=== PATIENT | male | born 1975 | race African-American/Black ===

== ENCOUNTER 2017-06-14 16:14 | Observation (INO) | payer SELFPAY ==
--- NOTE | 2017-06-14 17:01 | DR.GENAD ---
HPI - PCP Primary Care Physician: NFD - Complaint/Symptoms Chief Complaint Doctors Comments: History as stated, admits to alcohol comsumption Chief Complaint:: "For about 3 days now I have been having stomach pain in the lower part of it. It has gotten so bad I can barely touch it without it hurting. I threw up 1 time the other day, but not after. I took a Zantac but that didn't do anything. I also took a laxative yesterday but it didn't stop the pain." Self Treatment fo Chief Complaint: Zantac x 1. Laxative - Source History Provided: Patient - Mode of Arrival Mode of Arrival: Ambulatory - Timing Onset of Chief Complaint: 06/11/17 PMH - PMH Past Medical History: No Past Surgical History: No - Family History History of Family Medical Conditions: Yes Family Medical History: Diabetes Mellitus, Hypertension - Social History Does patient currently use any type of tobacco product: No Have you used tobacco products in the last 12 months: No Type of Tobacco Use: None Does any household member use tobacco: No Alcohol Use: Heavy Do you use any recreational Drugs:: No Lives With: Family Lives Where: Home - infectious screening In the last 2 months have you had wt loss of >10#?: NO Have you had fever, night sweats or hemotysis?: No Have you traveled outside the country in the last 6 months?: No Isolation: Standard ROS - Review of Systems Eyes: No Symptoms Reported ENTM: No Symptoms Reported Respiratoy: No Symptoms Reported Cardiovascular: No Symptoms Reported Gastrointestinal/Abdominal: Abdominal Pain Neurological: No Symptoms Reported Musculoskeletal: No Symptoms Reported Integumentary: No Symptoms Reported Hematologic/Lymphatic: No Symptoms Reported Endocrine: No Symptoms Reported Psychiatric: No Symptoms Reported All Other Systems: Reviewed and Negative PE - Vital Signs Vitals: Temperature 98.2 F Pulse Rate 69 Respiratory Rate 18 Blood Pressure 165/97 O2 Sat by Pulse Oximetry 98 - General General Appearance: Alert, In No Apparent Distress - Head Head Exam: Normal Inspection, Atraumatic - Eyes Eye exam: Normal Appearance, PERRL, EOMI - ENT ENT Exam: Normal Exam External Ear Exam: Normal External Inspection TM/Canal Exam: Bilateral Normal Nose Exam: Normal Nose Exam Mouth Exam: Normal Inspection Throat Exam: Normal Inspection - Neck Neck Exam: Normal Inspection - Chest Chest Inspection: Normal Inspection - Respiratory Respiratory Exam: Normal Lung Sounds Bilat Respiratory Exam: Bilateral Clear to Auscultation - Cardiovascular Cardiovascular Exam: Regular Rate, Normal Rhythm - Abdominal Exam Abdominal Exam: Distention, Hyperactive Bowel Sounds Abdominal Tenderness: Diffuse - Extremities Extremities Exam: Normal Inspection, Full ROM - Back Back Exam: Normal Inspection - Neurologic Neurological Exam: Alert, Oriented X3, CN II-XII Intact - Psychiatric Psychiatric Exam: Normal Affect, Normal Mood - Skin Skin Exam: Warm, Dry, Intact Course - Consultation Called: 19:20 (Dr Amaya agreed to admit for further treatment) ROR - Labs Reviewed Result Diagrams: 06/14/17 17:18 06/14/17 17:18 Laboratory: WBC 4.6 X10^3/uL (3.6-10.0) 06/14/17 17:18 RBC 5.17 X10^6/uL (4.7-6.0) 06/14/17 17:18 Hgb 14.8 g/dL (13.5-18.0) 06/14/17 17:18 Hct 42.5 % (42.0-54.0) 06/14/17 17:18 MCV 82.2 fL (80.0-100.0) 06/14/17 17:18 MCH 28.7 pg (27.0-34.0) 06/14/17 17:18 MCHC 34.9 g/dL (33.0-35.0) 06/14/17 17:18 RDW 12.7 % (11.6-16.5) 06/14/17 17:18 Plt Count 194 X10^3/uL (150.0-450.0) 06/14/17 17:18 MPV 8.0 fL (7.4-11.0) 06/14/17 17:18 Neut % 63.8 % (42.0-75.0) 06/14/17 17:18 Lymph % 22.2 % (21.0-51.0) 06/14/17 17:18 [place] % 11.7 % (0.0-13.0) 06/14/17 17:18 Eos % 1.8 % (0.9-2.9) 06/14/17 17:18 Baso % 0.5 % (0.2-1.0) 06/14/17 17:18 Neut # 2.9 x10^3/uL (2.2-4.8) 06/14/17 17:18 Lymph # 1.0 X10^3/uL (1.3-2.9) L 06/14/17 17:18 [place] # 0.5 x10^3/uL (0.3-0.8) 06/14/17 17:18 Eos # 0.1 x10^3/uL (0.0-0.2) 06/14/17 17:18 Baso # 0.0 X10^3/uL (0.0-0.1) 06/14/17 17:18 Absolute Nucleated RBC 0.1 /100WBC 06/14/17 17:18 Sodium 141 mmol/L (136-145) 06/14/17 17:18 Corrected Sodium TNP 06/14/17 17:18 Potassium 3.7 mmol/L (3.5-5.1) 06/14/17 17:18 Chloride 102 mmol/L (98-107) 06/14/17 17:18 Carbon Dioxide 33.0 mmol/L (21-32) H 06/14/17 17:18 BUN 10 mg/dL (7-18) 06/14/17 17:18 Creatinine 0.99 mg/dL (0.70-1.30) 06/14/17 17:18 Est GFR (MDRD) Af Amer > 60 (>60) 06/14/17 17:18 Est GFR (MDRD) Non-Af > 60 (>60) 06/14/17 17:18 Glucose 107 mg/dL (65-99) H 06/14/17 17:18 Calcium 8.8 mg/dL (8.5-10.1) 06/14/17 17:18 Corrected Calcium TNP 06/14/17 17:18 Total Bilirubin 0.50 mg/dL (0.2-1.0) 06/14/17 17:18 AST 20 Units/L (15-37) 06/14/17 17:18 ALT 19 Units/L (12-78) 06/14/17 17:18 Alkaline Phosphatase 91 Units/L (46-116) 06/14/17 17:18 C-Reactive Protein 17.40 mg/L (0-3.0) H 06/14/17 17:18 Total Protein 7.2 g/dL (6.4-8.2) 06/14/17 17:18 Albumin 3.9 g/dL (3.4-5.0) 06/14/17 17:18 Globulin 3.3 g/dL (2.5-4.5) 06/14/17 17:18 Albumin/Globulin Ratio 1.2 Ratio (1.1-2.1) 06/14/17 17:18 Amylase 38 Units/L (25-115) 06/14/17 17:18 Lipase 128 Units/L (73-393) 06/14/17 17:18 - XRAY XRAY Interpreted by: Radiologist (Acute Abdominal Film: Chest negative; Abdomen : There is gaseous dilatation of the small bowel with air-fluid levels noted within the mid and lower abdomen are most consistent with small bowel obstruction. No free air or pneumatosis) - Diagnosis Discharge Problem: Small bowel obstruction - Discharge Plan Condition: Stable - Follow ups/Referrals Follow ups/Referrals: NFD,None [Primary Care Provider] - 3 days - Instructions
[2017-06-14 17:26] LABS: BASOPHILS % (AUTO) 0.5 % (0.2-1.0); EOSINOPHILS # (AUTO) 0.1 x10^3/uL (0.0-0.2); EOSINOPHILS % (AUTO) 1.8 % (0.9-2.9); HEMATOCRIT 42.5 % (42.0-54.0); HEMOGLOBIN 14.8 g/dL (13.5-18.0); LYMPHOCYTES % (AUTO) 22.2 % (21.0-51.0); MEAN CORPUSCULAR HEMOGLOBIN 28.7 pg (27.0-34.0); MEAN CORPUSCULAR HGB CONC 34.9 g/dL (33.0-35.0); MEAN CORPUSCULAR VOLUME 82.2 fL (80.0-100.0); MONOCYTES # (AUTO) 0.5 x10^3/uL (0.3-0.8); MONOCYTES % (AUTO) 11.7 % (0.0-13.0); NEUTROPHILS # (AUTO) 2.9 x10^3/uL (2.2-4.8); NEUTROPHILS % (AUTO) 63.8 % (42.0-75.0); PLATELET COUNT 194 X10^3/uL (150.0-450.0); RED BLOOD COUNT 5.17 X10^6/uL (4.7-6.0); RED CELL DISTRIBUTION WIDTH 12.7 % (11.6-16.5); WHITE BLOOD COUNT 4.6 X10^3/uL (3.6-10.0)
[2017-06-14 17:44] LABS: ALANINE AMINOTRANSFERASE 19 Units/L (12-78); ALBUMIN 3.9 g/dL (3.4-5.0); ALKALINE PHOSPHATASE 91 Units/L (46-116); AMYLASE 38 Units/L (25-115); ASPARTATE AMINO TRANSFERASE 20 Units/L (15-37); BLOOD UREA NITROGEN 10 mg/dL (7-18); CALCIUM 8.8 mg/dL (8.5-10.1); CHLORIDE 102 mmol/L (98-107); CREATININE 0.99 mg/dL (0.70-1.30); LIPASE 128 Units/L (73-393); SODIUM 141 mmol/L (136-145); TOTAL PROTEIN 7.2 g/dL (6.4-8.2); eGFR BLACK RACES > 60 (>60); eGFR NON BLACK RACES > 60 (>60)
[2017-06-14] MEDS ORDERED: NS 1000 ML 1,000 ML IV SCH (18:00)
--- NOTE | 2017-06-14 18:27 | RAD ---
Acute abdominal series Indication: Abdominal pain with bloating Comparison: None available Findings: The trachea is midline. The cardiac silhouette is unremarkable. The lungs are clear without focal i nfiltrate or effusion. The bony thorax is unremarkable. There is gaseous dilatation of the small bowel with air-fluid levels noted within the left upper and lower abdomen. There is no free air pneumatosis. Bowel gas pattern within the colon is within normal limits. No radiopaque density within the abdomen or pelvis. Osseous structures are intact. IMPRESSION: 1. No acute cardiopulmonary disease. 2. Gas dilated loops of small bowel with air-fluid levels within the mid and lower abdomen are most consistent with small bowel obstruction. No free air or pneumatosis. Reported By:
[2017-06-14] MEDS ORDERED: MORPHINE SULFATE INJ 4 MG IVP PRN (19:59)
[2017-06-14 20:59] VITALS: BMI 35.7
[2017-06-14] MEDS ORDERED: NS 1/2 1000 ML IV 0 ML IV ONE (21:16)
[2017-06-14] MEDS ORDERED: NS 50 ML IV + SPIKE MINIBAG* 50 ML IV ONE (21:17)
[2017-06-14] MEDS: ZOSYN VIAL 2.25 GM IV SCH ×2 (21:23→21:37)
[2017-06-14] MEDS: NS 1000 ML 1,000 ML IV SCH (21:36)
[2017-06-15] MEDS ORDERED: NS 50 ML IV + SPIKE MINIBAG* 50 ML IV ONE ×2 (05:26→20:21)
[2017-06-15] MEDS: NS 1000 ML 1,000 ML IV SCH ×3 (05:36→21:18)
[2017-06-15] MEDS: ZOSYN VIAL 2.25 GM IV SCH ×3 (05:36→21:19)
[2017-06-15 06:01] LABS: ALANINE AMINOTRANSFERASE 17 Units/L (12-78); ALBUMIN 3.5 g/dL (3.4-5.0); ALKALINE PHOSPHATASE 72 Units/L (46-116); ASPARTATE AMINO TRANSFERASE 20 Units/L (15-37); BLOOD UREA NITROGEN 12 mg/dL (7-18); CALCIUM 8.4 mg/dL (8.5-10.1); CARBON DIOXIDE 31.2 mmol/L (21-32); CHLORIDE 104 mmol/L (98-107); COR NA(FOR HYPERGLY) 144 mmol/L (136-145); CREATININE 1.14 mg/dL (0.70-1.30); SODIUM 143 mmol/L (136-145); TOTAL PROTEIN 6.4 g/dL (6.4-8.2); eGFR BLACK RACES > 60 (>60); eGFR NON BLACK RACES > 60 (>60)
[2017-06-15 06:05] LABS: BASOPHILS % (AUTO) 0.5 % (0.2-1.0); EOSINOPHILS # (AUTO) 0.1 x10^3/uL (0.0-0.2); EOSINOPHILS % (AUTO) 3.3 % (0.9-2.9); HEMATOCRIT 40.2 % (42.0-54.0); HEMOGLOBIN 14.1 g/dL (13.5-18.0); LYMPHOCYTES # (AUTO) 1.4 X10^3/uL (1.3-2.9); LYMPHOCYTES % (AUTO) 34.9 % (21.0-51.0); MEAN CORPUSCULAR HEMOGLOBIN 28.8 pg (27.0-34.0); MEAN CORPUSCULAR HGB CONC 35.2 g/dL (33.0-35.0); MEAN PLATELET VOLUME 8.6 fL (7.4-11.0); MONOCYTES # (AUTO) 0.4 x10^3/uL (0.3-0.8); MONOCYTES % (AUTO) 10.9 % (0.0-13.0); NEUTROPHILS % (AUTO) 50.4 % (42.0-75.0); PLATELET COUNT 176 X10^3/uL (150.0-450.0); RED CELL DISTRIBUTION WIDTH 12.7 % (11.6-16.5)
[2017-06-15] MEDS ORDERED: NS 100 ML IV + SPIKE MINIBAG* 100 ML IV ONE (13:56)
[2017-06-15] MEDS ORDERED: MAG-OX TAB PO PRN (14:15)
[2017-06-15] MEDS ORDERED: K-LYTE EFFERVESCENT PO PRN (14:15)
[2017-06-15] MEDS ORDERED: K-RIDER 10 MEQ/NS 100 ML 10 MEQ/100 ML BAG IV PRN (14:15)
[2017-06-15] MEDS ORDERED: MAGNESIUM SULFATE 1 GM/100 mL PREMIX 1 GM/100 ML BAG IV PRN (14:15)
[2017-06-15] MEDS ORDERED: K-DUR TAB 20 MEQ PO PRN (14:15)
[2017-06-15] MEDS ORDERED: POTASSIUM CHLORIDE LIQ 20 MEQ UDC PO PRN (14:15)
[2017-06-15] MEDS: CHRONULAC PO SCH (22:18)
--- NOTE | 2017-06-15 22:30 | DR.H&P ---
H&P - History & Physical for Day of: H&P Date: 06/14/17 - Chief Complaint Chief Complaint: ABDOMINAL PAIN - Allergies Allergies/Adverse Reactions: Allergies Allergy/AdvReac Type Severity Reaction Status Date / Time No Known Drug Allergies Allergy Verified 06/14/17 16:15 - History of Present Illness History of Present Illness: THE PATIENT IS A 42YO BM WHO PRESENTED TO ED WITH COMPLAINT OF ABD PAIN WITH NAUSEA/VOMITING. PATIENT STATES SYMPTOMSSTARTED IN SATURDAY. STATES HE FELT FULL IF HE TRIED TO EAT OR DRINK. STATES HIS BM PATTERN IS REGULAR UNTIL THIS OCCURRED. DENIES PREVIOUS OBSTRUCTION OR HISTORY OF ABDOMINAL SURGERY. - Past Surgical History Surgical History: No History - Family History Family Medical History: Diabetes Mellitus, Hypertension - Social History Does patient currently use any type of tobacco product: No Have you used tobacco products in the last 12 months: No Type of Tobacco Use: None Does any household member use tobacco: No Alcohol Use: Occasionally Drug Use: None - Medications Home Medications: NK [NK] 06/14/17 [History Confirmed 06/14/17] - Review of Systems Constitutional: Malaise Eyes: No Symptoms Reported ENT: No Symptoms Reported Respiratory: No Symptoms Reported Cardiovascular: No Symptoms Reported Gastrointestinal: Nausea, Vomiting, Abdominal Pain Genitourinary: No Symptoms Reported Musculoskeletal: No Symptoms Reported Skin: No Symptoms Reported Neurological: No Symptoms Reported - Physical Exam Vital Signs: Temperature 97.5 F Pulse Rate [Left Brachial] 66 Pulse Rate [Right Brachial] 75 Pulse Rate 69 Respiratory Rate 20 Blood Pressure [Left Arm] 150/87 Blood Pressure [Right Arm] 158/69 Blood Pressure 165/97 O2 Sat by Pulse Oximetry 96 Oriented: Normal Eyes: Normal Ear: Normal Nose: Normal Throat: Normal Respiratory: Clear Throughout Cardiovascular: Normal : Normal Auscultation: Bowel Sounds: Normal Palpation: Normal Tenderness: Diffuse Skin: Normal Musculoskeletal: Normal Psychiatric: Normal Mood Description: Calm Affect: Normal Speech Pattern: Clear - Assessment/Plan (1) Small bowel obstruction Status: Acute Plan: NPO. MONITOR KUB. CBC.
--- NOTE | 2017-06-15 22:33 | PCM.PROG ---
Progress Note - Progress Note for Day of Date: 06/15/17 - Subjective Subjective: THE PATIENT IS A 42YO BM ADMITTED WITH A SBO. STATES THAT HE HAS BEEN PASSING GAS THIS AMAND DID HAVE A BM THIS MORNING. STATES THAT ABD PAIN IS BETTER BUT IS MORE SORE NOW. STATES THAT NAUSEA IS ABSENT. - Past Medical Family Social History Past Med/Fam/Surg Hx: No changes since H&P Allergies: Allergies No Known Drug Allergies Allergy (Verified 06/14/17 16:15) - Review of Systems ROS: No change since H&P - Vital Signs and I&O's Vital Signs: Temperature 97.5 F Pulse Rate [Left Brachial] 66 Pulse Rate [Right Brachial] 75 Pulse Rate 69 Respiratory Rate 20 Blood Pressure [Left Arm] 150/87 Blood Pressure [Right Arm] 158/69 Blood Pressure 165/97 O2 Sat by Pulse Oximetry 96 Intake and Output: Intake & Output 06/13/17 06/14/17 06/15/17 06/16/17 11:59 11:59 11:59 11:59 Intake Total 400 1300 Balance 400 1300 - Physical Exam Oriented: Normal Eyes: Normal Ear: Normal Nose: Normal Throat: Normal Respiratory: Normal Cardiovascular: Normal : Normal Auscultation: Bowel Sounds: Normal Palpation: Normal Tenderness: Diffuse Skin: Normal Musculoskeletal: Normal Psychiatric: Normal Mood Description: Calm Affect: Normal Speech Pattern: Clear - Laboratory and Diagnostics Result Diagrams: 06/15/17 03:20 06/15/17 19:40 Labs: Laboratory WBC 4.0 X10^3/uL (3.6-10.0) 06/15/17 03:20 RBC 4.90 X10^6/uL (4.7-6.0) 06/15/17 03:20 Hgb 14.1 g/dL (13.5-18.0) 06/15/17 03:20 Hct 40.2 % (42.0-54.0) L 06/15/17 03:20 MCV 82.0 fL (80.0-100.0) 06/15/17 03:20 MCH 28.8 pg (27.0-34.0) 06/15/17 03:20 MCHC 35.2 g/dL (33.0-35.0) H 06/15/17 03:20 RDW 12.7 % (11.6-16.5) 06/15/17 03:20 Plt Count 176 X10^3/uL (150.0-450.0) 06/15/17 03:20 MPV 8.6 fL (7.4-11.0) 06/15/17 03:20 Neut % 50.4 % (42.0-75.0) 06/15/17 03:20 Lymph % 34.9 % (21.0-51.0) 06/15/17 03:20 [place] % 10.9 % (0.0-13.0) 06/15/17 03:20 Eos % 3.3 % (0.9-2.9) H 06/15/17 03:20 Baso % 0.5 % (0.2-1.0) 06/15/17 03:20 Neut # 2.0 x10^3/uL (2.2-4.8) L 06/15/17 03:20 Lymph # 1.4 X10^3/uL (1.3-2.9) 06/15/17 03:20 [place] # 0.4 x10^3/uL (0.3-0.8) 06/15/17 03:20 Eos # 0.1 x10^3/uL (0.0-0.2) 06/15/17 03:20 Baso # 0.0 X10^3/uL (0.0-0.1) 06/15/17 03:20 Absolute Nucleated RBC 0.4 /100WBC 06/15/17 03:20 Sodium 143 mmol/L (136-145) 06/15/17 03:20 Corrected Sodium 144 mmol/L (136-145) 06/15/17 03:20 Potassium 3.6 mmol/L (3.5-5.1) 06/15/17 19:40 Chloride 104 mmol/L (98-107) 06/15/17 03:20 Carbon Dioxide 31.2 mmol/L (21-32) 06/15/17 03:20 BUN 12 mg/dL (7-18) 06/15/17 03:20 Creatinine 1.14 mg/dL (0.70-1.30) 06/15/17 03:20 Est GFR (MDRD) Af Amer > 60 (>60) 06/15/17 03:20 Est GFR (MDRD) Non-Af > 60 (>60) 06/15/17 03:20 Glucose 121 mg/dL (65-99) H 06/15/17 03:20 Calcium 8.4 mg/dL (8.5-10.1) L 06/15/17 03:20 Corrected Calcium TNP 06/15/17 03:20 Magnesium 2.1 mg/dL (1.7-2.9) 06/15/17 03:20 Total Bilirubin 0.50 mg/dL (0.2-1.0) 06/15/17 03:20 AST 20 Units/L (15-37) 06/15/17 03:20 ALT 17 Units/L (12-78) 06/15/17 03:20 Alkaline Phosphatase 72 Units/L (46-116) 06/15/17 03:20 C-Reactive Protein 17.40 mg/L (0-3.0) H 06/14/17 17:18 Total Protein 6.4 g/dL (6.4-8.2) 06/15/17 03:20 Albumin 3.5 g/dL (3.4-5.0) 06/15/17 03:20 Globulin 2.9 g/dL (2.5-4.5) 06/15/17 03:20 Albumin/Globulin Ratio 1.2 Ratio (1.1-2.1) 06/15/17 03:20 Amylase 38 Units/L (25-115) 06/14/17 17:18 Lipase 128 Units/L (73-393) 06/14/17 17:18 - Plan (1) Small bowel obstruction Status: Acute Plan: NPO. MONITOR KUB. CBC.
[2017-06-16] MEDS ORDERED: NS 50 ML IV + SPIKE MINIBAG* 50 ML IV ONE ×3 (04:07→20:30)
[2017-06-16] MEDS: NS 1000 ML 1,000 ML IV SCH ×3 (04:17→21:39)
[2017-06-16] MEDS: CHRONULAC PO SCH ×4 (04:17→21:38)
[2017-06-16 05:22] LABS: BASOPHILS % (AUTO) 0.5 % (0.2-1.0); EOSINOPHILS # (AUTO) 0.2 x10^3/uL (0.0-0.2); EOSINOPHILS % (AUTO) 3.6 % (0.9-2.9); HEMOGLOBIN 14.1 g/dL (13.5-18.0); LYMPHOCYTES # (AUTO) 1.4 X10^3/uL (1.3-2.9); LYMPHOCYTES % (AUTO) 33.1 % (21.0-51.0); MEAN CORPUSCULAR HEMOGLOBIN 28.7 pg (27.0-34.0); MEAN CORPUSCULAR HGB CONC 35.1 g/dL (33.0-35.0); MEAN CORPUSCULAR VOLUME 81.8 fL (80.0-100.0); MEAN PLATELET VOLUME 8.8 fL (7.4-11.0); MONOCYTES # (AUTO) 0.4 x10^3/uL (0.3-0.8); MONOCYTES % (AUTO) 9.3 % (0.0-13.0); NEUTROPHILS # (AUTO) 2.2 x10^3/uL (2.2-4.8); NEUTROPHILS % (AUTO) 53.5 % (42.0-75.0); PLATELET COUNT 191 X10^3/uL (150.0-450.0); RED BLOOD COUNT 4.89 X10^6/uL (4.7-6.0); RED CELL DISTRIBUTION WIDTH 12.6 % (11.6-16.5); WHITE BLOOD COUNT 4.2 X10^3/uL (3.6-10.0)
[2017-06-16 05:29] LABS: BLOOD UREA NITROGEN 9 mg/dL (7-18); CALCIUM 8.2 mg/dL (8.5-10.1); CARBON DIOXIDE 27.4 mmol/L (21-32); CHLORIDE 106 mmol/L (98-107); COR NA(FOR HYPERGLY) 142 mmol/L (136-145); CREATININE 0.94 mg/dL (0.70-1.30); SODIUM 142 mmol/L (136-145); eGFR BLACK RACES > 60 (>60); eGFR NON BLACK RACES > 60 (>60)
[2017-06-16] MEDS: ZOSYN VIAL 2.25 GM IV SCH ×3 (05:53→21:38)
[2017-06-16] MEDS ORDERED: NS 100 ML IV + SPIKE MINIBAG* 100 ML IV ONE ×2 (13:57)
[2017-06-16] MEDS ORDERED: CATAPRES TAB 0.1 MG PO PRN (21:28)
[2017-06-16] MEDS: NORVASC TAB 5 MG PO SCH (21:38)
--- NOTE | 2017-06-16 21:56 | PCM.PROG ---
Progress Note - Progress Note for Day of Date: 06/16/17 - Subjective Subjective: THE PATIENT IS A 42YO BM ADMITTED WITH A SBO. STATES THAT HE HAS BEEN PASSING HAD MULTIPLE LOOSE BMs SINCE TAKING THE lACTULOSE LAST NIGHT. STATES HE IS MORE TENDER THAN PAIN NOW. STATES THAT THE LIQUIDS DO NOT FEEL LIKE THEY ARE BACKING UP NOW. - Past Medical Family Social History Past Med/Fam/Surg Hx: No changes since H&P Allergies: Allergies No Known Drug Allergies Allergy (Verified 06/14/17 16:15) - Review of Systems ROS: No change since H&P - Vital Signs and I&O's Vital Signs: Temperature 98.4 F Pulse Rate [Left Brachial] 60 Pulse Rate [Right Brachial] 61 Pulse Rate 69 Respiratory Rate 20 Blood Pressure [Left Arm] 178/98 Blood Pressure [Right Arm] 167/84 Blood Pressure 165/97 O2 Sat by Pulse Oximetry 100 Intake and Output: Intake & Output 06/14/17 06/15/17 06/16/17 06/17/17 11:59 11:59 11:59 11:59 Intake Total 400 2940 480 Balance 400 2940 480 - Physical Exam Oriented: Normal Eyes: Normal Ear: Normal Nose: Normal Throat: Normal Respiratory: Normal Cardiovascular: Normal : Normal Auscultation: Bowel Sounds: Normal Palpation: Normal Tenderness: Diffuse, Mild Skin: Normal Musculoskeletal: Normal Psychiatric: Normal Mood Description: Calm Affect: Normal Speech Pattern: Clear, Appropriate - Laboratory and Diagnostics Result Diagrams: 06/16/17 03:25 06/16/17 03:25 Labs: Laboratory WBC 4.2 X10^3/uL (3.6-10.0) 06/16/17 03:25 RBC 4.89 X10^6/uL (4.7-6.0) 06/16/17 03:25 Hgb 14.1 g/dL (13.5-18.0) 06/16/17 03:25 Hct 40.0 % (42.0-54.0) L 06/16/17 03:25 MCV 81.8 fL (80.0-100.0) 06/16/17 03:25 MCH 28.7 pg (27.0-34.0) 06/16/17 03:25 MCHC 35.1 g/dL (33.0-35.0) H 06/16/17 03:25 RDW 12.6 % (11.6-16.5) 06/16/17 03:25 Plt Count 191 X10^3/uL (150.0-450.0) 06/16/17 03:25 MPV 8.8 fL (7.4-11.0) 06/16/17 03:25 Neut % 53.5 % (42.0-75.0) 06/16/17 03:25 Lymph % 33.1 % (21.0-51.0) 06/16/17 03:25 [place] % 9.3 % (0.0-13.0) 06/16/17 03:25 Eos % 3.6 % (0.9-2.9) H 06/16/17 03:25 Baso % 0.5 % (0.2-1.0) 06/16/17 03:25 Neut # 2.2 x10^3/uL (2.2-4.8) 06/16/17 03:25 Lymph # 1.4 X10^3/uL (1.3-2.9) 06/16/17 03:25 [place] # 0.4 x10^3/uL (0.3-0.8) 06/16/17 03:25 Eos # 0.2 x10^3/uL (0.0-0.2) 06/16/17 03:25 Baso # 0.0 X10^3/uL (0.0-0.1) 06/16/17 03:25 Absolute Nucleated RBC 0.2 /100WBC 06/16/17 03:25 Sodium 142 mmol/L (136-145) 06/16/17 03:25 Corrected Sodium 142 mmol/L (136-145) 06/16/17 03:25 Potassium 3.5 mmol/L (3.5-5.1) 06/16/17 03:25 Chloride 106 mmol/L (98-107) 06/16/17 03:25 Carbon Dioxide 27.4 mmol/L (21-32) 06/16/17 03:25 BUN 9 mg/dL (7-18) 06/16/17 03:25 Creatinine 0.94 mg/dL (0.70-1.30) 06/16/17 03:25 Est GFR (MDRD) Af Amer > 60 (>60) 06/16/17 03:25 Est GFR (MDRD) Non-Af > 60 (>60) 06/16/17 03:25 Glucose 112 mg/dL (65-99) H 06/16/17 03:25 Calcium 8.2 mg/dL (8.5-10.1) L 06/16/17 03:25 Corrected Calcium TNP 06/15/17 03:20 Magnesium 2.1 mg/dL (1.7-2.9) 06/15/17 03:20 Total Bilirubin 0.50 mg/dL (0.2-1.0) 06/15/17 03:20 AST 20 Units/L (15-37) 06/15/17 03:20 ALT 17 Units/L (12-78) 06/15/17 03:20 Alkaline Phosphatase 72 Units/L (46-116) 06/15/17 03:20 C-Reactive Protein 17.40 mg/L (0-3.0) H 06/14/17 17:18 Total Protein 6.4 g/dL (6.4-8.2) 06/15/17 03:20 Albumin 3.5 g/dL (3.4-5.0) 06/15/17 03:20 Globulin 2.9 g/dL (2.5-4.5) 06/15/17 03:20 Albumin/Globulin Ratio 1.2 Ratio (1.1-2.1) 06/15/17 03:20 Amylase 38 Units/L (25-115) 06/14/17 17:18 Lipase 128 Units/L (73-393) 06/14/17 17:18 - Plan (1) Small bowel obstruction Status: Acute Plan: SOFT DIET. MONITOR KUB. CBC.
[2017-06-17] MEDS: NS 1000 ML 1,000 ML IV SCH ×2 (02:30→12:32)
[2017-06-17] MEDS ORDERED: NS 50 ML IV + SPIKE MINIBAG* 50 ML IV ONE (04:10)
[2017-06-17] MEDS: CHRONULAC PO SCH ×4 (04:14→22:43)
[2017-06-17] MEDS: ZOSYN VIAL 2.25 GM IV SCH ×3 (05:11→22:56)
[2017-06-17 05:32] LABS: BASOPHILS % (AUTO) 0.7 % (0.2-1.0); EOSINOPHILS # (AUTO) 0.2 x10^3/uL (0.0-0.2); EOSINOPHILS % (AUTO) 4.3 % (0.9-2.9); HEMATOCRIT 41.2 % (42.0-54.0); HEMOGLOBIN 14.5 g/dL (13.5-18.0); LYMPHOCYTES # (AUTO) 1.5 X10^3/uL (1.3-2.9); LYMPHOCYTES % (AUTO) 36.9 % (21.0-51.0); MEAN CORPUSCULAR HEMOGLOBIN 28.9 pg (27.0-34.0); MEAN CORPUSCULAR HGB CONC 35.2 g/dL (33.0-35.0); MEAN CORPUSCULAR VOLUME 82.1 fL (80.0-100.0); MEAN PLATELET VOLUME 8.1 fL (7.4-11.0); MONOCYTES # (AUTO) 0.4 x10^3/uL (0.3-0.8); NEUTROPHILS % (AUTO) 49.1 % (42.0-75.0); PLATELET COUNT 204 X10^3/uL (150.0-450.0); RED BLOOD COUNT 5.01 X10^6/uL (4.7-6.0); RED CELL DISTRIBUTION WIDTH 12.6 % (11.6-16.5)
[2017-06-17 05:37] LABS: ALANINE AMINOTRANSFERASE 23 Units/L (12-78); ALBUMIN 3.5 g/dL (3.4-5.0); ALKALINE PHOSPHATASE 67 Units/L (46-116); ASPARTATE AMINO TRANSFERASE 30 Units/L (15-37); BLOOD UREA NITROGEN 4 mg/dL (7-18); CALCIUM 8.6 mg/dL (8.5-10.1); CARBON DIOXIDE 26.3 mmol/L (21-32); CHLORIDE 106 mmol/L (98-107); COR NA(FOR HYPERGLY) 141 mmol/L (136-145); CREATININE 0.95 mg/dL (0.70-1.30); SODIUM 141 mmol/L (136-145); TOTAL PROTEIN 6.7 g/dL (6.4-8.2); eGFR BLACK RACES > 60 (>60); eGFR NON BLACK RACES > 60 (>60)
[2017-06-17] MEDS: NORVASC TAB 5 MG PO SCH (09:46)
[2017-06-17] MEDS ORDERED: NS 100 ML IV + SPIKE MINIBAG* 100 ML IV ONE ×3 (14:05→22:41)
[2017-06-17] MEDS ORDERED: TYLENOL 325 MG TAB PO PRN (22:59)
[2017-06-18] MEDS: NS 1000 ML 1,000 ML IV SCH ×4 (03:53→10:37)
[2017-06-18] MEDS ORDERED: NS 100 ML IV + SPIKE MINIBAG* 100 ML IV ONE (05:27)
[2017-06-18 05:28] LABS: ALANINE AMINOTRANSFERASE 27 Units/L (12-78); ALBUMIN 3.4 g/dL (3.4-5.0); ALKALINE PHOSPHATASE 80 Units/L (46-116); ASPARTATE AMINO TRANSFERASE 33 Units/L (15-37); BLOOD UREA NITROGEN 5 mg/dL (7-18); CALCIUM 8.7 mg/dL (8.5-10.1); CARBON DIOXIDE 27.5 mmol/L (21-32); CHLORIDE 106 mmol/L (98-107); COR NA(FOR HYPERGLY) 141 mmol/L (136-145); CREATININE 1.03 mg/dL (0.70-1.30); SODIUM 141 mmol/L (136-145); TOTAL PROTEIN 6.6 g/dL (6.4-8.2); eGFR BLACK RACES > 60 (>60); eGFR NON BLACK RACES > 60 (>60)
[2017-06-18] MEDS: CHRONULAC PO SCH ×2 (05:39→10:03)
[2017-06-18] MEDS: ZOSYN VIAL 2.25 GM IV SCH (05:39)
[2017-06-18 05:48] LABS: BASOPHILS % (AUTO) 0.8 % (0.2-1.0); EOSINOPHILS # (AUTO) 0.2 x10^3/uL (0.0-0.2); EOSINOPHILS % (AUTO) 4.9 % (0.9-2.9); HEMATOCRIT 41.4 % (42.0-54.0); HEMOGLOBIN 14.5 g/dL (13.5-18.0); LYMPHOCYTES # (AUTO) 1.8 X10^3/uL (1.3-2.9); LYMPHOCYTES % (AUTO) 42.5 % (21.0-51.0); MEAN CORPUSCULAR HEMOGLOBIN 28.8 pg (27.0-34.0); MEAN CORPUSCULAR VOLUME 82.1 fL (80.0-100.0); MEAN PLATELET VOLUME 8.3 fL (7.4-11.0); MONOCYTES # (AUTO) 0.4 x10^3/uL (0.3-0.8); MONOCYTES % (AUTO) 9.2 % (0.0-13.0); NEUTROPHILS # (AUTO) 1.8 x10^3/uL (2.2-4.8); NEUTROPHILS % (AUTO) 42.6 % (42.0-75.0); PLATELET COUNT 209 X10^3/uL (150.0-450.0); RED BLOOD COUNT 5.04 X10^6/uL (4.7-6.0); RED CELL DISTRIBUTION WIDTH 12.4 % (11.6-16.5); WHITE BLOOD COUNT 4.2 X10^3/uL (3.6-10.0)
[2017-06-18] MEDS: NORVASC TAB 5 MG PO SCH (10:03)
[2017-06-18 14:34] VITALS: BP 170/101
== END 2017-06-18 14:50 | disposition home or self-care (01) ==
LOC: ER 16:27 → MED/SURG 19:51
PROVIDERS: ADMIT Internal Medicine; ATTEND Internal Medicine
DX: K56.699 Other intestinal obstruction unspecified as to partial versus complete obstruction (principal); R10.84 Generalized abdominal pain; I10 Essential (primary) hypertension
CPT/HCPCS: 36415; 74000; 74022; 80048; 80053; 82150; 83690; 83735; 84132; 85025; 86140; 94760; 96365; 96367; 99284; A4216; A4222; G0378; J2543